=== PATIENT | female | born 1985 | race Two or more races ===

== ENCOUNTER 2018-08-23 15:09 | Inpatient (IN) | payer OTHER ==
[~2018-08-23] VITALS: Ht 165.1 cm; Wt 78.5 kg
[2018-09-20] MEDS ORDERED: PRENATABS RX T1 EACH PO (03:35)
== END 2018-09-22 13:06 | disposition home or self-care, planned readmission (81) | DRG 807 ==
LOC: LDR 08-30 15:00 → SURG-SUITE 09-20 03:30 → LDR 09-26 15:00
PROC: 10E0XZZ Delivery of Products of Conception, External Approach (ICD-10-PCS; principal; 2018-09-20)
PROC: 0UQGXZZ Repair Vagina, External Approach (ICD-10-PCS; 2018-09-20)
PROC: 4A1HXCZ Monitoring of Products of Conception, Cardiac Rate, External Approach (ICD-10-PCS; 2018-09-20)
DX: O71.4 Obstetric high vaginal laceration alone (principal); Z37.0 Single live birth; Z3A.39 39 weeks gestation of pregnancy; Z22.330 Carrier of Group B streptococcus